=== PATIENT | male | born 1955 | race Caucasian/White ===

== ENCOUNTER 2024-07-11 06:16 | Emergency (ER) | payer MEDICAID ==
[~2024-07-11] VITALS: Ht 154.9 cm; Wt 82.0 kg
[2024-07-11 06:28] VITALS: O2SAT 97
[2024-07-11 06:38] VITALS: BP 173/97; PULSE 130; RESP 16; TEMP 98.3; O2SAT 100
[2024-07-11] MEDS ORDERED: CEPH500C2 MT (07:58)
[2024-07-11] MEDS: TETANUS, DIPHTHERIA, PERTUSSIS VAC/PF 0.5ML (>10YR OLD) IM ONE (08:31)
== END 2024-07-11 08:30 | disposition home or self-care (01) ==
LOC: ER 06:30
DX: S30.852A Superficial foreign body of penis, initial encounter (principal); I49.9 Cardiac arrhythmia, unspecified; Z88.0 Allergy status to penicillin; X58.XXXA Exposure to other specified factors, initial encounter; Y93.9 Activity, unspecified; Y92.89 Other specified places as the place of occurrence of the external cause; Y99.8 Other external cause status
CPT/HCPCS: 93005; 99283

== ENCOUNTER 2024-11-14 19:58 | Emergency (ER) | payer OTHER ==
[~2024-11-14] VITALS: Ht 152.4 cm; Wt 62.2 kg
[~2024-11-14 19:58] MED LIST: CEPH500C2 MT
[2024-11-14 20:17] VITALS: O2SAT 99
[2024-11-14] MEDS ORDERED: KETOROLAC 30MG/ML VIAL IM ONE (21:00)
[2024-11-14] MEDS: KETOROLAC 30MG/ML VIAL IM NR (22:47)
[2024-11-15 01:35] LABS: BASOPHILS % 1.4 % (0.0-2.0); DIFFERENTIAL COMMENT 0; EOSINOPHILS % 2.3 % (0.0-5.0); HEMATOCRIT. 45.6 % (42.0-52.0); HEMOGLOBIN. 15.3 g/dL (14.0-18.0); LYMPHOCYTES % 29.6 % (20.0-50.0); MEAN CORPUSCULAR HEMOGLOBIN 33.9 pg (28.0-32.0); MEAN CORPUSCULAR HGB CONC 33.4 g/dL (31.0-37.0); MEAN CORPUSCULAR VOLUME 101.3 fL (80.0-94.0); MEAN PLATELET VOLUME 8.5 fl (7.4-10.4); MONOCYTES % 6.9 % (2.0-8.0); NEUTROPHILS % 59.8 % (40.0-76.0); PLATELET 195 x1000/uL (130-400); RED BLOOD CELL COUNT 4.51 mill/uL (4.7-6.1); RED CELL DISTRIBUTION WIDTH 14.9 % (11.6-14.6); WHITE BLOOD COUNT 6.9 x1000/uL (4.5-11.0)
[2024-11-15 01:46] LABS: CARBON DIOXIDE 29 mEq/L (21-32); CHLORIDE 109 mEq/L (98-107); POTASSIUM 3.9 mEq/L (3.5-5.1); SODIUM 145 mEq/L (136-145)
[2024-11-15 01:47] LABS: CALCIUM 7.7 mg/dL (8.7-10.4)
[2024-11-15 01:52] LABS: CREATININE 0.7 mg/dL (0.6-1.3); GLUCOSE 104 mg/dL (70-105); UREA NITROGEN BLOOD 6 mg/dL (9-23)
[2024-11-15 01:53] LABS: ALANINE AMINOTRANSFERASE 44 IU/L (10-49); ALBUMIN 3.8 g/dL (3.2-4.8); ASPARTATE AMINOTRANSFERASE 71 IU/L (<34)
[2024-11-15 01:54] LABS: BILIRUBIN DIRECT 0.4 mg/dL (<=3.0); BILIRUBIN TOTAL 0.9 mg/dL (0.1-1.0); PROTEIN TOTAL 6.7 g/dL (6.0-8.3); TROPONIN I HIGH SENSITIVITY 6 ng/L (3.0-53)
[2024-11-15 02:28] LABS: INR 1.2; PROTHROMBIN TIME 12.9 sec (9.6-11.0)
[2024-11-15 03:46] LABS: TROPONIN I HIGH SENSITIVITY 6 ng/L (3.0-53)
[2024-11-15 04:30] VITALS: BP 115/65; PULSE 81; RESP 10; TEMP 36.8; O2SAT 99
== END 2024-11-15 05:41 | disposition short-term general hospital (02) ==
LOC: ER 19:58 → CMPBEDREQ 11-16 08:02
DX: S92.422A Displaced fracture of distal phalanx of left great toe, initial encounter for closed fracture (principal); Z88.0 Allergy status to penicillin; X58.XXXA Exposure to other specified factors, initial encounter; Y93.01 Activity, walking, marching and hiking; Y92.89 Other specified places as the place of occurrence of the external cause; Y99.8 Other external cause status
CPT/HCPCS: 73660; 96372; 99285; 80076; 80048; 83880; 83690; 85025; 85610; 84484; 36415; 71045; 70450; J1885; Z7610 ×2